=== PATIENT | female | born 2000 | race Caucasian/White ===

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

== ENCOUNTER → 2019-02-15 | Outpatient (CLI) | payer OTHER ==
[~2019-02-15] MED LIST changes: +IBUP600T42 PO; -IBUP60TA PO
[2019-02-15 11:51] LABS: HEMATOCRIT 34.8 % (36.0-47.0); HEMOGLOBIN 11.6 g/dl (12.0-15.5); MEAN CORPUSCULAR HEMOGLOBIN 31.8 pg (27.0-33.0); MEAN CORPUSCULAR HGB CONC 33.3 g/dl (32.0-36.5); MEAN CORPUSCULAR VOLUME 95.3 fl (80.0-96.0); PLATELET COUNT, AUTOMATED 273 10^3/uL (150-450); RED BLOOD COUNT 3.65 10^6/uL (4.00-5.40)
== END ==
LOC: M LAB 10:24
PROVIDERS: ATTEND Obstetrics & Gynecology
DX: Z34.82 Encounter for supervision of other normal pregnancy, second trimester (principal); Z3A.00 Weeks of gestation of pregnancy not specified

== ENCOUNTER → 2019-02-20 | Outpatient (CLI) | payer OTHER | LOC: M LAB 07:09 | PROVIDERS: ATTEND Obstetrics & Gynecology | DX: R73.02 Impaired glucose tolerance (oral) (principal) ==

== ENCOUNTER 2019-03-15 23:41 | Outpatient (CLI) | payer OTHER ==
[~2019-03-15] VITALS: Ht 160 cm; Wt 90.6 kg
[~2019-03-15 23:41] MED LIST changes: +NITROFURANTOIN (MACROBID) 100 MG CAP PO SCH
[2019-03-16 00:46] VITALS: BP 129/83
[2019-03-16] MEDS ORDERED: ACETAMINOPHEN 500 MG TAB PO ONE (02:15)
[2019-03-16] MEDS ORDERED: NITR100C2 PO (02:20)
[2019-03-16 02:24] VITALS: BP 123/83
== END 2019-03-16 02:25 | disposition home or self-care (01) ==
LOC: M LDO 23:41
PROVIDERS: ATTEND Obstetrics & Gynecology
DX: O26.893 Other specified pregnancy related conditions, third trimester (principal); M54.5 Low back pain; O23.43 Unspecified infection of urinary tract in pregnancy, third trimester; Z3A.29 29 weeks gestation of pregnancy

== ENCOUNTER → 2019-05-03 | Outpatient (REF) | payer OTHER ==
[~2019-05-03] MED LIST changes: +IBUP80TA PO; +NITR100C2 PO; -NITROFURANTOIN (MACROBID) 100 MG CAP PO SCH; +PERCOCET PO
== END ==
LOC: M LAB REF 12:35
PROVIDERS: ATTEND Nurse Practitioner Women's Health
DX: Z34.03 Encounter for supervision of normal first pregnancy, third trimester (principal)

== ENCOUNTER 2019-05-11 12:08 | Inpatient (IN) | payer OTHER ==
[2019-05-11] VITALS (10 sets, daily range): BP systolic 113–156; BP diastolic 56–95
[~2019-05-11] VITALS: Ht 165.1 cm; Wt 101.5 kg
[~2019-05-11 12:08] MED LIST changes: -IBUP80TA PO; -PERCOCET PO
[2019-05-11] MEDS ORDERED: LR 1,000 ML IV SCH ×2 (12:45→15:45)
[2019-05-11] MEDS ORDERED: LACTATED RINGER'S 1000 ML IV ONE (13:00)
[2019-05-11 13:16] LABS: HEMATOCRIT 36.3 % (36.0-47.0); HEMOGLOBIN 12.4 g/dl (12.0-15.5); MEAN CORPUSCULAR HGB CONC 34.2 g/dl (32.0-36.5); MEAN CORPUSCULAR VOLUME 93.6 fl (80.0-96.0); PLATELET COUNT, AUTOMATED 262 10^3/uL (150-450); RED BLOOD COUNT 3.88 10^6/uL (4.00-5.40); WHITE BLOOD COUNT 7.7 10^3/uL (4.0-10.0)
[2019-05-11 13:46] LABS: ALT/SGPT 7 U/L (12-78); BILIRUBIN,TOTAL 0.2 MG/DL (0.2-1.0); CREATININE FOR GFR 0.42 MG/DL (0.55-1.30); LDH LACTATE DEHYDROGENASE 192 U/L (84-246); URIC ACID 3.7 MG/DL (2.6-6.0)
[2019-05-11] MEDS ORDERED: BICITRA 30ML SOLN UDC As Ordered ONE (14:10)
[2019-05-11] MEDS ORDERED: ceFAZolin 2 GM/D5W 50 ML IV BAG (J0690 PER 500MG) As Ordered ONE (14:10)
[2019-05-11] MEDS ORDERED: BICITRA 30ML SOLN UDC PO ONE (14:15)
[2019-05-11] MEDS ORDERED: MORPHINE PRES-FREE INJ 10 MG/10 ML VIAL (J2274) As Ordered ONE (14:19)
[2019-05-11] MEDS ORDERED: ONDANSETRON 4MG/2ML VIAL (J2405) IV PRN ×2 (14:40→15:45)
[2019-05-11] MEDS ORDERED: NALOXONE INJ 0.4 MG/1 ML VIAL (J2310) IV PRN ×2 (14:40)
[2019-05-11] MEDS ORDERED: diphenhydrAMINE INJ 50MG/ML VIAL (J1200) IV PRN (14:40)
[2019-05-11] MEDS ORDERED: NALBUPHINE HCL 10 MG/ML AMP (J2300) IV PRN (14:40)
[2019-05-11] MEDS ORDERED: OXYTOCIN INJ 10 UNITS/ML VIAL (J2590) As Ordered ONE (15:04)
[2019-05-11] MEDS ORDERED: ONDANSETRON 4MG/2ML VIAL (J2405) As Ordered ONE (15:04)
[2019-05-11 15:07] LABS: CORD GAS ABE V -2.1; CORD GAS HCO3 V 23.4 MEQ/L; CORD GAS O2 SAT V 74.8 %; CORD GAS PCO2 V 42.8 mmHg; CORD GAS PH V 7.356 UNITS; CORD GAS PO2 V 31.2 mmHg; CORD GAS SBC V 22.1 MEQ/L; CORD GAS TCO2 V 24.7 MEQ/L
[2019-05-11 15:11] LABS: CORD GAS ABE A -4.2; CORD GAS HCO3 A 23.3 MEQ/L; CORD GAS PCO2 A 50.9 mmHg; CORD GAS PO2 A 23.3 mmHg; CORD GAS SBC A 19.9 MEQ/L; CORD GAS TCO2 A 24.8 MEQ/L
[2019-05-11 15:12] LABS: CORD GAS PH A 7.278 UNITS
[2019-05-11] MEDS ORDERED: PHYTONADIONE 1 MG/0.5 ML SYRINGE (J3430) IM ONE (15:15)
[2019-05-11] MEDS ORDERED: IBUP80TA PO (15:44)
[2019-05-11] MEDS ORDERED: PERCOCET PO (15:44)
[2019-05-11] MEDS ORDERED: oxyCODONE 5MG TAB PO PRN (15:45)
[2019-05-11] MEDS ORDERED: MOM 30ML SUSPENSION UDC PO PRN (15:45)
[2019-05-11] MEDS ORDERED: OXYTOCIN DRIP 30 UNITS in APPROPRIATE DILUENT 1 EA IV SCH (15:45)
[2019-05-11] MEDS ORDERED: RHOGAM 300 MCG (1500 IU) INJ (J2790) IM SCH (15:45)
[2019-05-11] MEDS ORDERED: PERCOCET 5MG/325MG TAB PO PRN ×2 (15:45)
[2019-05-11] MEDS ORDERED: METOCLOPRAMIDE INJ 10MG/2ML VIAL (J2765) IV PRN (15:45)
[2019-05-11] MEDS ORDERED: fentaNYL 100 MCG/2 ML INJECTION (J3010) IV PRN (15:45)
[2019-05-11] MEDS ORDERED: KETOROLAC 30 MG/ML VIAL (J1885) IV PRN (15:45)
[2019-05-11] MEDS ORDERED: MEPERIDINE INJ 25 MG/ML VIAL (J2175) IV PRN (15:45)
[2019-05-11] MEDS ORDERED: MEASLES,MUMPS,RUBELLA VACCINE INJ (MMR-II) (90707) SC SCH (15:45)
[2019-05-11] MEDS ORDERED: ERYTHROMYCIN OPHTH OINT OU ONE (16:00)
[2019-05-11] MEDS ORDERED: ACETAMINOPHEN TAB 650MG DOSE (2X325MG) PO PRN (16:00)
[2019-05-11] MEDS ORDERED: HEPATITIS B VAC *BIRTH DOSE ONLY*(ENGERIX) 10 MCG/0.5 ML SYRINGE IM ONE (16:00)
[2019-05-11] MEDS ORDERED: OXYTOCIN 30 UNITS IN 0.9% NaCl 500ML IV BAG (J2590) As Ordered ONE (16:46)
[2019-05-11] MEDS ORDERED: KETOROLAC 30 MG/ML VIAL (J1885) As Ordered ONE (17:02)
--- NOTE | 2019-05-11 17:58 | HPE ---
DATE OF ADMISSION: 05/11/2019 Fara is a 18-year-old female 2, para 1-0-0-1, who was admitted with an estimated date of confinement (EDC) of 05/27/2019, estimated gestational age (EGA) 37-5/7 weeks gestation who is being admitted after presenting to the office with complaint of decreased movement. She had a nonreactive non-stress test (NST) followed by a 4/8 biophysical profile, -2 for tone, -2 for movement. She was also found to be polyhydramnios in a breech position. After counseling, a decision was made to bring the patient to the hospital for delivery. Her records reviewed, which were essentially unremarkable. She initiated care at approximately 7 weeks gestation. LABORATORY: Blood type is O positive, rubella immune, hepatitis negative, HIV negative, GC and chlamydia negative. One-hour sugar testing was within normal limits. Her GBS was negative. PAST MEDICAL HISTORY: Denies. PAST SURGICAL HISTORY: Denies. SOCIAL HISTORY: Denies any alcohol, drugs, or cigarette smoking. She is . FAMILY HISTORY: Significant for diabetes and congestive heart failure. PHYSICAL EXAMINATION: Obese female in no acute distress. Abdomen: Soft, nontender, nondistended. Extremities: No clubbing, cyanosis, or edema. Vaginal exam: Closed, thick, and posterior with no presenting part palpated. Tracing reviewed. heart rate 140s. No evidence of decelerations. ASSESSMENT: 1. Intrauterine at 37-5/7 weeks gestation. 2. Decreased movement with a 4/8 biophysical profile, -2 for tone and -2 for movement. 3. Polyhydramnios. Amniotic fluid 29 cm. 4. Breech presentation. PLAN: Admit to labor and delivery. Routine labs sent. We had an extensive discussion on risks and benefits of delivery. A decision was made to proceed with delivery via section. Anesthesia and labor and delivery (L and D) staff notified. Awaiting operating room (OR) for primary low transverse section.
[2019-05-11] MEDS: METOCLOPRAMIDE INJ 10MG/2ML VIAL (J2765) IV PRN (18:27)
[2019-05-11] MEDS ORDERED: diphenhydrAMINE 25 MG CAP PO PRN (22:30)
--- NOTE | 2019-05-11 22:34 | RO ---
DATE OF PROCEDURE: 05/11/2019 Fara is a 18-year-old female 2, para 1-0-0-1 who is admitted at 37-5/7 weeks gestation after presenting with decreased movement and was found to have a 4/8 biophysical profile, -2 for tone, -2 for movement. She also was found to be polyhydramnios with an CELESTINA of 29. After extensive counseling, a decision was made to proceed with a primary section. PREOPERATIVE DIAGNOSES: 1. Intrauterine at 37-5/7 weeks gestation. 2. 4/8 biophysical profile with decreased movement. 3. Breech presentation. 4. Polyhydramnios. POSTOPERATIVE DIAGNOSES: 1. Intrauterine at 37-5/7 weeks gestation. 2. 4/8 biophysical profile with decreased movement. 3. Breech presentation. 4. Polyhydramnios. 5. Nuchal cord times one and cord wrapped around the body. PROCEDURE: Primary low transverse section. SURGEON: Dr. Kevin Law VISUAL MERCHANDISE MANAGER: Dr. Rodriguez - resident ANESTHESIA: Spinal. ESTIMATED BLOOD LOSS: 600 mL. FINDINGS: Live male infant in occiput transverse position with nuchal cord times one and cord wrapped around the body times one. score 8 and 9. weight 8 pounds. Normal appearing tubes and ovaries. Normal appearing placenta. DESCRIPTION OF PROCEDURE: After obtaining informed consent, the patient was taken to the operating room where spinal anesthetic was found to be adequate. She was then draped and prepped in the usual sterile fashion in the supine position. At this point, an elliptical incision was made with the first knife. This was carried down to the fascia. Fascia was incised in a midline fashion and carried through laterally. The superior aspect of the fascia was then grasped with Love clamps, tented off and dissected off the rectus muscles sharply. The inferior aspect of the fascia was dissected off in a similar fashion. Rectus muscles in midline fashion. Peritoneum identified. Peritoneal cavity entered bluntly. Superior and inferior dissection of the peritoneum was then done with good position of the bladder. At this point, a Mobius skin retractor was placed, a low transverse uterine incision was made. was delivered in atraumatic fashion. Nose and mouth bulb suctioned. Cord doubly clamped and cut and infant was handed over to the awaiting warmer. Cord blood and cord gas were sent. Placenta removed manually. Uterus cleared of all clot and debris, and the uterine incision was then repaired in two separate layers of #0 Vicryl sutures. All superficial bleeders were coagulated. Fascia closed in two separate segments of #0 Vicryl suture, and the skin was closed in a subcuticular fashion using #3-0 Vicryl on a Chavez. Steri-Strips placed. The patient tolerated the procedure well and was transferred to recovery room in stable condition.
[2019-05-11] MEDS: IBUPROFEN 800 MG TAB PO SCH (23:47)
[2019-05-12 02:00] VITALS: BP 128/86
[2019-05-12] MEDS: METOCLOPRAMIDE INJ 10MG/2ML VIAL (J2765) IV PRN (03:28)
[2019-05-12 06:00] VITALS: BP 109/56
[2019-05-12 06:48] LABS: HEMATOCRIT 32.9 % (36.0-47.0); HEMOGLOBIN 10.8 g/dl (12.0-15.5); MEAN CORPUSCULAR HEMOGLOBIN 30.9 pg (27.0-33.0); MEAN CORPUSCULAR HGB CONC 32.8 g/dl (32.0-36.5); PLATELET COUNT, AUTOMATED 215 10^3/uL (150-450); WHITE BLOOD COUNT 10.3 10^3/uL (4.0-10.0)
[2019-05-12] MEDS: PRENATAL VITAMINS CHEWABLE TABLET PO SCH (07:57)
[2019-05-12] MEDS: IBUPROFEN 800 MG TAB PO SCH ×3 (07:58→23:44)
--- NOTE | 2019-05-12 08:55 | IPNPDOC ---
Text Note Date of Service The patient was seen on 05/12/19. NOTE Postop Day 1 s/p primary LTCS; secondary to low BPP/transverse lie S: Pain well controlled, lochia and bleeding decreasing, voiding spontaneously, ambulating without assistance. . O: vitals stable Heart: RRR, no murmurs/gallops/rubs Lungs: CTA BL Abd: Fundus at U-1 and firm; dressing dry and intact; some pannus edema Ext: no lower extremity edema, nontender, Bess's negative bilaterally A/P: 18 yo G2 now P2. Postop day 1 s/p primary LTCS. Hemodynamically stable, afebrile, good pain control. Recovering well. -Routine care and advancement -Anticipate discharge tomorrow VS,Aristeo, I+O VS, Aristeo, I+O Laboratory Tests 05/11/19 12:52 Red Blood Count 3.88 L, Mean Corpuscular Volume 93.6, Mean Corpuscular Hemoglobin 32.0, Mean Corpuscular Hemoglobin Concent 34.2, Red Cell Distribution Width 12.3 05/11/19 12:53 Aspartate Amino Transf (AST/SGOT) 17, Alanine Aminotransferase (ALT/SGPT) 7 L, Lactate Dehydrogenase 192, Total Bilirubin 0.2, Uric Acid 3.7 05/12/19 06:16 Red Blood Count 3.50 L, Mean Corpuscular Volume 94.0, Mean Corpuscular Hemoglobi n 30.9, Mean Corpuscular Hemoglobin Concent 32.8, Red Cell Distribution Width 12.4 Vital Signs Date Time Temp Pulse Resp B/P (MAP) Pulse Ox O2 Delivery O2 Flow Rate FiO2 05/12/19 06:00 97.4 75 16 109/56 (73) 98 I&O- Last 24 Hours up to 6 AM 05/12/19 05:59 Intake Total 600 ml Output Total 1575 ml Balance -975 ml GME ATTESTATION GME ATTESTATION My faculty preceptor for this patient encounter was physically present during the encounter and was fully available. All aspects of the patient interview, examination, medical decision making process, and medical care plan development were reviewed and approved by the faculty preceptor. The faculty preceptor is aware and concurs with the plan as stated in the body of this note and will attest to such by his/her cosignature. NICK LOMAX DO May 12, 2019 08:55
[2019-05-12 10:00] VITALS: BP 136/83
[2019-05-12 14:00] VITALS: BP 136/94
[2019-05-12 18:00] VITALS: BP 128/81
[2019-05-12 22:47] VITALS: BP 132/77
[2019-05-13 02:20] VITALS: BP 131/79
[2019-05-13 05:41] VITALS: BP 129/70
[2019-05-13] MEDS: PRENATAL VITAMINS CHEWABLE TABLET PO SCH (09:26)
[2019-05-13] MEDS: IBUPROFEN 800 MG TAB PO SCH (09:26)
--- NOTE | 2019-05-13 14:53 | DSES ---
DATE OF ADMISSION: 05/11/2019 DATE OF DISCHARGE: 05/13/2019 HISTORY: 18-year-old G2, P1, female at 37-5/7s weeks gestation presents with decreased movement. She had non-reassuring testing which included a biophysical profile of 8/8 and nonreactive NST test. The patient was noted to have polyhydramnios and also to be in the breech position. The decision was made to proceed with delivery via section. On 05/11/2019, the patient underwent primary section for an 8-pound without complication. Her postoperative course was unremarkable. She had adequate return of bladder and bowel function. Postop hemoglobin was 10.8 gm/dL. She was deemed stable for discharge on postoperative day #2. ADMISSION DIAGNOSIS: 37+ weeks. Breech. Non-reassuring tracing. DISCHARGE DIAGNOSIS: Delivered. PROCEDURE: Primary low transverse section. DISPOSITION: Patient will followup with Dr. Law in 2 weeks. Instructions were reviewed.
== END 2019-05-13 12:05 | disposition home or self-care (01) | DRG 540 ==
LOC: M LDI 12:08 → M OBS 17:47
PROVIDERS: ADMIT Obstetrics & Gynecology; ATTEND Obstetrics & Gynecology
PROC: 10D00Z1 Extraction of Products of Conception, Low, Open Approach (ICD-10-PCS; principal; 2019-05-11 15:18)
DX: O32.1XX0 Maternal care for breech presentation, not applicable or unspecified (principal); Z3A.37 37 weeks gestation of pregnancy; Z37.0 Single live birth; O40.3XX0 Polyhydramnios, third trimester, not applicable or unspecified; O99.214 Obesity complicating childbirth; E66.9 Obesity, unspecified; O69.81X0 Labor and delivery complicated by cord around neck, without compression, not applicable or unspecified; O69.82X0 Labor and delivery complicated by other cord entanglement, without compression, not applicable or unspecified

== ENCOUNTER → 2019-06-15 | Outpatient (REF) | payer OTHER ==
[~2019-06-15] MED LIST changes: +IBUP80TA PO; +PERCOCET PO
== END ==
LOC: M LAB REF 13:34
PROVIDERS: ATTEND Nurse Practitioner Women's Health
DX: T81.40XA Infection following a procedure, unspecified, initial encounter (principal)

== ENCOUNTER → 2020-06-11 | Outpatient (CLI) | payer OTHER | LOC: M LABSMTC 13:31 | PROVIDERS: ATTEND Family Medicine | DX: Z20.828 Contact with and (suspected) exposure to other viral communicable diseases (principal) | CPT/HCPCS: C9803; U0003 ==

== ENCOUNTER → 2020-06-22 | Outpatient (REF) | payer OTHER ==
[2020-06-23 12:00] LABS: CREATININE 24 HOUR, URINE 884.4 MG/24HR (600-1800); CREATININE, URINE 73.7 MG/DL; TOTAL PROTEIN 24 HOUR URINE 169.2 MG/24HR (50-150); URINE TOTAL PROTEIN 14.1 MG/DL (0-12)
== END ==
LOC: M LAB REF 10:56
PROVIDERS: ATTEND Obstetrics & Gynecology
DX: Z34.81 Encounter for supervision of other normal pregnancy, first trimester (principal)

== ENCOUNTER → 2020-06-23 | Outpatient (CLI) | payer OTHER ==
[2020-06-23 11:22] LABS: ALT/SGPT 11 U/L (12-78); BILIRUBIN,TOTAL 0.2 MG/DL (0.2-1.0); BLOOD UREA NITROGEN 4 MG/DL (7-18); CALCIUM LEVEL 9.1 MG/DL (8.5-10.1); CARBON DIOXIDE LEVEL 20 MEQ/L (21-32); CHLORIDE LEVEL 108 MEQ/L (98-107); CREATININE FOR GFR 0.38 MG/DL (0.55-1.30); POTASSIUM SERUM 4.3 MEQ/L (3.5-5.1); SODIUM LEVEL 138 MEQ/L (136-145); TOTAL PROTEIN 6.9 GM/DL (6.4-8.2)
[2020-06-24 14:38] LABS: GLUCOSE, FASTING 99 MG/DL (70-100)
== END ==
LOC: M LAB 09:55
PROVIDERS: ATTEND Obstetrics & Gynecology
DX: Z34.81 Encounter for supervision of other normal pregnancy, first trimester (principal); Z3A.00 Weeks of gestation of pregnancy not specified

== ENCOUNTER → 2020-09-17 | Outpatient (CLI) | payer OTHER ==
[2020-09-17 11:33] LABS: HEMATOCRIT 37.4 % (36.0-47.0); HEMOGLOBIN 11.9 g/dl (12.0-15.5); MEAN CORPUSCULAR HEMOGLOBIN 31.2 pg (27.0-33.0); MEAN CORPUSCULAR HGB CONC 31.8 g/dl (32.0-36.5); MEAN CORPUSCULAR VOLUME 97.9 fl (80.0-96.0); PLATELET COUNT, AUTOMATED 256 10^3/uL (150-450); RED BLOOD COUNT 3.82 10^6/uL (4.00-5.40); WHITE BLOOD COUNT 9.1 10^3/uL (4.0-10.0)
== END ==
LOC: M LAB 09:55
PROVIDERS: ATTEND Obstetrics & Gynecology
DX: Z34.82 Encounter for supervision of other normal pregnancy, second trimester (principal); Z3A.00 Weeks of gestation of pregnancy not specified

== ENCOUNTER → 2020-10-07 | Outpatient (CLI) | payer OTHER | LOC: M LAB 08:16 | PROVIDERS: ATTEND Advanced Practice Midwife | DX: O26.893 Other specified pregnancy related conditions, third trimester (principal); Z3A.00 Weeks of gestation of pregnancy not specified ==

== ENCOUNTER → 2020-11-13 | Outpatient (REF) | payer OTHER | LOC: M LAB REF 16:08 | PROVIDERS: ATTEND Obstetrics & Gynecology | DX: Z34.83 Encounter for supervision of other normal pregnancy, third trimester (principal); Z36.85 Encounter for antenatal screening for Streptococcus B ==

== ENCOUNTER 2020-11-21 20:07 | Outpatient (CLI) | payer OTHER ==
[~2020-11-21] VITALS: Ht 160 cm; Wt 105.6 kg
[2020-11-21 20:44] VITALS: BP 133/93
[2020-11-21 21:19] VITALS: BP 135/96
[2020-11-21 21:22] VITALS: BP 135/96
== END 2020-11-21 20:55 | disposition home or self-care (01) ==
LOC: M LDO 20:07
PROVIDERS: ATTEND Obstetrics & Gynecology
DX: O26.893 Other specified pregnancy related conditions, third trimester (principal); O10.012 Pre-existing essential hypertension complicating pregnancy, second trimester; Z3A.36 36 weeks gestation of pregnancy

== ENCOUNTER 2020-11-26 15:58 | Emergency (ER) | payer OTHER ==
[~2020-11-26] VITALS: Ht 162.6 cm; Wt 107.7 kg
[2020-11-26 17:35] LABS: BASO % 0.3 % (0.0-1.0); EOS # 0.2 10^3/uL (0.0-0.5); EOS % 2.1 % (0.0-3.0); HEMATOCRIT 37.4 % (36.0-47.0); HEMOGLOBIN 12.1 g/dl (12.0-15.5); LYMPH # 2.1 10^3/uL (1.5-5.0); LYMPH % 22.3 % (24.0-44.0); MEAN CORPUSCULAR HGB CONC 32.4 g/dl (32.0-36.5); MEAN CORPUSCULAR VOLUME 92.6 fl (80.0-96.0); MONO # 0.9 10^3/uL (0.0-0.8); MONO % 9.5 % (2.0-8.0); NEUTROPHILS # 6.2 10^3/uL (1.5-8.5); NEUTROPHILS % 65.3 % (36.0-66.0); PLATELET COUNT, AUTOMATED 300 10^3/uL (150-450); RED BLOOD COUNT 4.04 10^6/uL (4.00-5.40); WHITE BLOOD COUNT 9.5 10^3/uL (4.0-10.0)
[2020-11-26 17:52] LABS: APPEARANCE, URINE HAZY (CLEAR); BACTERIA, URINE AUTO 2+ (NEGATIVE); BILIRUBIN, URINE AUTO NEGATIVE (NEGATIVE); BLOOD, URINE BLOOD NEGATIVE (NEGATIVE); COLOR, URINE YELLOW (YELLOW); GLUCOSE, URINE (UA) AUTO NEGATIVE (NEGATIVE); KETONE, URINE AUTO TRACE mg/dL (NEGATIVE); LEUKOCYTE ESTERASE, URINE AUTO TRACE (NEGATIVE); MUCUS, URINE SMALL (NEGATIVE); NITRITE, URINE AUTO NEGATIVE (NEGATIVE); PROTEIN, URINE AUTO NEGATIVE (NEGATIVE); RBC, URINE AUTO 1 /HPF (0-3); SPECIFIC GRAVITY URINE AUTO 1.016 (1.002-1.035); SQUAMOUS EPITHELIAL CELL UR AU 4 /HPF (0-6); UROBILINOGEN, URINE AUTO 0.2 mg/dL (0.0-2.0); WBC, URINE AUTO 6 /HPF (0-3)
[2020-11-26 18:02] LABS: ALT/SGPT 10 U/L (12-78); BLOOD UREA NITROGEN 5 MG/DL (7-18); CALCIUM LEVEL 9.2 MG/DL (8.5-10.1); CARBON DIOXIDE LEVEL 23 MEQ/L (21-32); CHLORIDE LEVEL 110 MEQ/L (98-107); CREATININE FOR GFR 0.32 MG/DL (0.55-1.30); GLOMERULAR FILTRATION RATE > 60.0 (>60); GLUCOSE, FASTING 78 MG/DL (70-100); POTASSIUM SERUM 4.3 MEQ/L (3.5-5.1); SODIUM LEVEL 140 MEQ/L (136-145)
[2020-11-26 18:03] LABS: ALBUMIN 2.9 GM/DL (3.2-5.2); BILIRUBIN,DIRECT 0.1 MG/DL (0.0-0.2); BILIRUBIN,TOTAL 0.2 MG/DL (0.2-1.0); TOTAL PROTEIN 6.6 GM/DL (6.4-8.2)
[2020-11-26] MEDS ORDERED: GLYB5TAB6 PO (18:34)
--- NOTE | 2020-11-26 20:43 | REPVR ---
PROCEDURE INFORMATION: Exam: US Abdomen, Limited; Right Upper Quadrant Exam date and time: 11/26/2020 7:51 PM Age: 20 years old Clinical indication: Abdominal pain; Acute; Additional info: Ruq pain TECHNIQUE: Imaging protocol: US abdomen. Real time ultrasound with image documentation. Limited exam focused on the right upper quadrant. COMPARISON: CT ABD PELVIS W/O CONTRAST 02/23/2018 12:19 AM FINDINGS: Liver: Normal. No masses. Gallbladder: Normal. No gallstones. There is no gallbladder wall thickening. Common bile duct: The common bile duct measures 5.9 mm. No mass or choledocholithiasis. Pancreas: Visualized pancreas is unremarkable. Right kidney: Right kidney measures 12.4 x 6.5 x 5.5 cm. Uterus: Note is made of a gravid uterus. IMPRESSION: Unremarkable scan of the right upper quadrant. Electronically signed by: Chuck Pineda On 11/26/2020 20:43:57 PM
[2020-11-26 20:56] VITALS: BP 132/82
--- NOTE | 2020-11-27 11:28 | ECGEPIP ---
[facility] - ED Test Date: 2020-11-26 Pat Name: BRIANNE MUÑOZ Department: Room: - Gender: Female [employer] Corporal: Zack MUKHERJEE : 2000 Requested By: Era Scanlon Order Number: [id number] Reading MD: Bon Simental Measurements Intervals [place] Rate: 97 P: 31 MS: 148 QRS: -4 QRSD: 76 T: 16 QT: 346 QTc: 439 Interpretive Statements Normal sinus rhythm Minimal voltage criteria for LVH, may be normal variant POOR R WAVE PROGRESSION NONSPECIFIC T WAVE ABNORMALITY(S) NO PRIORS FOR COMPARISON Electronically Signed on 11-27-2020 11:28:32 EDT by Bon Simental
== END 2020-11-26 20:58 | disposition admitted as inpatient to this hospital (09) ==
LOC: M ED 15:58
DX: O60.03 Preterm labor without delivery, third trimester (principal); O26.893 Other specified pregnancy related conditions, third trimester; R10.13 Epigastric pain; Z3A.00 Weeks of gestation of pregnancy not specified

== ENCOUNTER 2020-11-26 20:59 | Outpatient (CLI) | payer OTHER ==
[~2020-11-26] VITALS: Ht 162.6 cm; Wt 104.0 kg
[~2020-11-26 20:59] MED LIST changes: +GLYB5TAB6 PO
[2020-11-26 23:03] LABS: TOTAL PROTEIN,RANDOM URINE 19.1 MG/DL (0.0-12.0)
== END 2020-11-26 23:30 | disposition home or self-care (01) ==
LOC: M LDO 20:59
PROVIDERS: ATTEND Advanced Practice Midwife
DX: O26.893 Other specified pregnancy related conditions, third trimester (principal); Z3A.37 37 weeks gestation of pregnancy

== ENCOUNTER → 2020-12-05 | Outpatient (CLI) | payer OTHER | LOC: M LABSMTC 10:41 | PROVIDERS: ATTEND Anesthesiology | DX: Z01.812 Encounter for preprocedural laboratory examination (principal); Z20.822 Contact with and (suspected) exposure to COVID-19 ==

== ENCOUNTER → 2020-12-05 | Outpatient (CLI) | payer OTHER ==
[~2020-12-05] MED LIST changes: +PRENTAB9 PO
--- NOTE | 2020-12-05 16:13 | REP ---
INDICATION: CELESTINA,EFW. COMPARISON: 11/14/2020. TECHNIQUE: Multiple sonographic images of the gravid uterus. FINDINGS: E there is a single intrauterine gestation in a cephalic presentation. The placenta is anterior with grade 2 maturity. There is no previa. The umbilical cord inserts centrally on to the placenta. There is a three-vessel cord. The cervix measures 3.1 cm. heart rate is 150 beats per minute. Amniotic fluid index is 11.8 (7.2-22.4). The composite ultrasound just let age today is 38 weeks 1 day with an RICK of 12/18/2020. The LMP is unknown. Estimated weight is 4298 g/9 lb, 7 oz. This is greater than the 97th percentile for 39 weeks 1 day. Umbilical artery Doppler: Umbilical artery 1: PSV 50.2 centimeters/second EDV 24.3 centimeters/second S/D 2.07 (1.50-3.28) RA 0.52 (0.41-0.69). Umbilical artery 2: PSV 35.5 centimeters/second EDV 70.8 centimeters/second S/D 2.00 RI 0.50 IMPRESSION: Amniotic fluid an estimated weight as above. <Electronically signed by Chip Dyer > 12/05/20 1614
== END ==
LOC: M WHC 10:07
PROVIDERS: ATTEND Obstetrics & Gynecology
DX: O24.415 Gestational diabetes mellitus in pregnancy, controlled by oral hypoglycemic drugs (principal); Z3A.38 38 weeks gestation of pregnancy

== ENCOUNTER 2020-12-10 05:11 | Inpatient (IN) | payer OTHER ==
[~2020-12-10] VITALS: Ht 160 cm; Wt 107.2 kg
[~2020-12-10 05:11] MED LIST changes: -PRENTAB9 PO
[2020-12-10] MEDS ORDERED: LR 1,000 ML IV SCH ×2 (05:17→10:00)
[2020-12-10] MEDS ORDERED: LACTATED RINGER'S 1000 ML IV STA (05:17)
[2020-12-10] MEDS ORDERED: ceFAZolin SOD 2 GM in IV 1 EA IV ONE (05:20)
[2020-12-10] MEDS ORDERED: BICITRA 30ML SOLN UDC PO ONE (05:20)
[2020-12-10] MEDS ORDERED: PRENTAB9 PO (05:27)
[2020-12-10 06:01] LABS: HEMATOCRIT 37.9 % (36.0-47.0); HEMOGLOBIN 12.1 g/dl (12.0-15.5); MEAN CORPUSCULAR HEMOGLOBIN 29.4 pg (27.0-33.0); MEAN CORPUSCULAR HGB CONC 31.9 g/dl (32.0-36.5); MEAN CORPUSCULAR VOLUME 92.2 fl (80.0-96.0); PLATELET COUNT, AUTOMATED 321 10^3/uL (150-450); RED BLOOD COUNT 4.11 10^6/uL (4.00-5.40); WHITE BLOOD COUNT 9.1 10^3/uL (4.0-10.0)
[2020-12-10] MEDS ORDERED: MORPHINE PRES-FREE INJ 10 MG/10 ML VIAL (J2274) As Ordered ONE ×2 (06:59→07:57)
[2020-12-10] MEDS ORDERED: OXYTOCIN INJ 10 UNITS/ML VIAL (J2590) As Ordered ONE ×3 (06:59→08:42)
[2020-12-10] MEDS ORDERED: dexameTHASONE 4 MG/ML 1ML VIAL (J1100 PER 1MG) As Ordered ONE (06:59)
[2020-12-10] MEDS ORDERED: ONDANSETRON 4MG/2ML VIAL As Ordered ONE (06:59)
[2020-12-10] MEDS ORDERED: KETOROLAC 60MG 2ML VIAL As Ordered ONE (06:59)
[2020-12-10] MEDS ORDERED: ONDANSETRON 4MG/2ML VIAL IV PRN ×2 (07:48→10:00)
[2020-12-10] MEDS ORDERED: diphenhydrAMINE 50MG/ML VIAL (J1200) IV PRN (07:48)
[2020-12-10] MEDS ORDERED: NALOXONE INJ 0.4MG/1ML VIAL (J2310 PER 1MG) IV PRN ×2 (07:48)
[2020-12-10] MEDS ORDERED: NALBUPHINE HCL 10 MG/ML AMP (J2300) IV PRN (07:48)
[2020-12-10] MEDS ORDERED: ePHEDrine SULFATE 25 MG/5 ML(5MG/ML) SYRINGE As Ordered ONE (07:56)
[2020-12-10] MEDS ORDERED: METOCLOPRAMIDE INJ 10MG/2ML VIAL (J2765 PER 1) As Ordered ONE (08:07)
[2020-12-10] MEDS ORDERED: PHENYLephrine 500MCG 5ML (100MCG/ML) SYRINGE As Ordered ONE (08:10)
[2020-12-10] MEDS ORDERED: propofoL 200 MG/20 ML VIAL As Ordered ONE (08:18)
[2020-12-10 08:22] LABS: CORD GAS ABE A -1.5; CORD GAS HCO3 A 26.9 MEQ/L; CORD GAS O2 SAT A 46.2 %; CORD GAS PCO2 A 60.3 mmHg; CORD GAS PH A 7.268 UNITS; CORD GAS PO2 A 22.2 mmHg; CORD GAS SBC A 21.9 MEQ/L; CORD GAS TCO2 A 28.8 MEQ/L
[2020-12-10 08:24] LABS: CORD GAS ABE V -2.9; CORD GAS HCO3 V 22.9 MEQ/L; CORD GAS O2 SAT V 85.2 %; CORD GAS PCO2 V 43.5 mmHg; CORD GAS PH V 7.339 UNITS; CORD GAS PO2 V 42.1 mmHg; CORD GAS SBC V 21.7 MEQ/L; CORD GAS TCO2 V 24.2 MEQ/L
[2020-12-10] MEDS ORDERED: SIMETHICONE 80MG CHEW TAB PO PRN (09:55)
[2020-12-10] MEDS ORDERED: RHOGAM 300 MCG (1500 IU) INJ (J2790) IM SCH (09:55)
[2020-12-10] MEDS ORDERED: MOM 30ML SUSPENSION UDC PO PRN (09:55)
[2020-12-10] MEDS ORDERED: MEASLES,MUMPS,RUBELLA VACCINE INJ (MMR-II) (90707) SC SCH (09:55)
[2020-12-10] MEDS ORDERED: OXYTOCIN DRIP 30 UNITS in IV 1 EA IV SCH (09:55)
[2020-12-10] MEDS ORDERED: PERCOCET 5MG/325MG TAB PO PRN (10:00)
[2020-12-10] MEDS ORDERED: fentaNYL 100 MCG/2 ML INJECTION (J3010) IV PRN (10:00)
[2020-12-10] MEDS ORDERED: METOCLOPRAMIDE INJ 10MG/2ML VIAL (J2765 PER 1) IV PRN (10:00)
[2020-12-10] MEDS ORDERED: OXYTOCIN 30 UNITS IN 0.9% NaCl 500ML IV BAG (J2590) As Ordered ONE (10:08)
[2020-12-10 10:45] VITALS: BP 116/63
[2020-12-10] MEDS: PRENATAL VITAMINS CHEWABLE TABLET PO SCH (11:07)
[2020-12-10 11:15] VITALS: BP 126/71
[2020-12-10 12:15] VITALS: BP 108/63
[2020-12-10 13:15] VITALS: BP 128/74
[2020-12-10] MEDS: METOCLOPRAMIDE INJ 10MG/2ML VIAL (J2765 PER 1) IV PRN ×2 (14:24→20:37)
[2020-12-10] MEDS: KETOROLAC 30 MG/ML 1ML VIAL IV SCH ×2 (15:18→20:37)
[2020-12-10 18:02] VITALS: BP 118/73
[2020-12-10] MEDS: DOCUSATE SODIUM 100MG CAPSULE PO SCH (20:37)
[2020-12-10] MEDS ORDERED: PROMETHAZINE INJ 25 MG/ML VIAL (J2550) IV ONE (21:30)
[2020-12-10 22:00] VITALS: BP 129/77
[2020-12-11 02:00] VITALS: BP 120/72
[2020-12-11] MEDS: KETOROLAC 30 MG/ML 1ML VIAL IV SCH (02:31)
[2020-12-11] MEDS: PERCOCET 5MG/325MG TAB PO PRN ×5 (05:31→21:52)
[2020-12-11 06:15] VITALS: BP 125/75
[2020-12-11 08:08] LABS: HEMATOCRIT 30.8 % (36.0-47.0); HEMOGLOBIN 9.7 g/dl (12.0-15.5); MEAN CORPUSCULAR HEMOGLOBIN 29.7 pg (27.0-33.0); MEAN CORPUSCULAR HGB CONC 31.5 g/dl (32.0-36.5); MEAN CORPUSCULAR VOLUME 94.2 fl (80.0-96.0); PLATELET COUNT, AUTOMATED 255 10^3/uL (150-450); RED BLOOD COUNT 3.27 10^6/uL (4.00-5.40); WHITE BLOOD COUNT 9.6 10^3/uL (4.0-10.0)
[2020-12-11] MEDS: PRENATAL VITAMINS CHEWABLE TABLET PO SCH (09:30)
[2020-12-11] MEDS: DOCUSATE SODIUM 100MG CAPSULE PO SCH ×2 (09:30→20:41)
[2020-12-11] MEDS: IBUPROFEN 800 MG TAB PO SCH ×2 (11:20→18:33)
[2020-12-11 13:48] VITALS: BP 129/72
[2020-12-11 18:00] VITALS: BP 126/72
[2020-12-11 22:00] VITALS: BP 118/61
[2020-12-12] MEDS: PERCOCET 5MG/325MG TAB PO PRN ×2 (01:26→08:06)
[2020-12-12 02:00] VITALS: BP 135/80
[2020-12-12] MEDS: IBUPROFEN 800 MG TAB PO SCH ×2 (03:25→10:39)
--- NOTE | 2020-12-12 05:35 | IPNPDOC ---
Progress Note Date of Service: Dec 12, 2020 Day#: 2 Progress Note POD 2 SUBJECT: Fara is a 20yo [id number] s/p uncomplicated RLTCS at term for history of prior , doing well /post-op day 2. She has been ambulating, voiding spontaneously without issue and tolerating regular diet. Breast feeding without issue. Reports lochia is like a normal period. Pain well controlled with motrin/percocet. Feels ready to go home today. OBJECTIVE: VITAL SIGNS: normotensive, afebrile. Alert and oriented times three. Abdomen: Fundus firm at U-2. Soft, appropriately tender to palpation with no rebound/guarding. Pfannenstiel incision clean/dry/intact with steri strips overlying Extremities: no pain with palpation of legs Labs: pre-op H/H: 12.1/37.9 post-op H/H: 9.7/30.8 ASSESSMENT: Fara is a 20yo [id number] s/p uncomplicated RLTCS at term for history of prior , doing well /post-op day 2. Vitals within normal limits, afebrile, hemodynamically stable with no evidence of infection. PLAN: 1. Discharge to home today. 2. Rx Motrin and prn percocet for pain. Colace for bowel regimen. Iron for anemia. 3. Regular diet 4. Routine 2 week incision check with Dr. Law 5. Discussed return precautions for signs of wound infection, fevers/chills, heavy bleeding, anything concerning 6. Vaginal rest and no heavy lifting 6 weeks Gloria Bautista MD VS, I&O, [facility] Vital Signs/I&O Vital Signs Date Time Temp Pulse Resp B/P (MAP) Pulse Ox O2 Delivery O2 Flow Rate FiO2 12/12/20 02:10 16 12/12/20 02:00 98.9 100 135/80 (98) 100 Room Air Laboratory Data 24H LABS Laboratory Tests 2 12/11/20 07:16: Nucleated Red Blood Cells % (auto) 0.0 CBC/BMP Laboratory Tests 12/11/20 07:16 Gloria Bautista MD Dec 12, 2020 05:35
--- NOTE | 2020-12-12 05:37 | DS.PDOC ---
Discharge Summary General Date of Admission Dec 10, 2020 at 05:11 Date of Discharge December 12, 2020 Attending Physician: Kevin Law DO Discharge Summary PROCEDURES PERFORMED DURING STAY: repeat section ADMITTING DIAGNOSES: 1. Term SIUP with history of prior section desiring repeat DISCHARGE DIAGNOSES: 1. Term SIUP with history of prior section desiring repeat COMPLICATIONS/CHIEF COMPLAINT: Term , Previous Section. HISTORY OF PRESENT ILLNESS/HOSPITAL COURSE: Fara is a 20yo [id number] s/p uncomplicated RLTCS at term for history of prior , doing well /post-op day 2. She has had a benign post-op course and at time of discharge, vitals were within normal limits, afebrile, hemodynamically stable with no evidence of infection. DISCHARGE MEDICATIONS: Please see below. ALLERGIES: Please see below. PHYSICAL EXAMINATION ON DISCHARGE: VITAL SIGNS: normotensive, afebrile. Alert and oriented times three. Abdomen: Fundus firm at U-2. Soft, appropriately tender to palpation with no rebound/guarding. Pfannenstiel incision clean/dry/intact with steri strips overlying Extremities: no pain with palpation of legs LABORATORY DATA: Please see below. pre-op H/H: 12.1/37.9 post-op H/H: 9.7/30.8 DISCHARGE PLAN/INSTRUCTIONS: 1. Discharge to home today. 2. Rx Motrin and prn percocet for pain. Colace for bowel regimen. Iron for anemia. 3. Regular diet 4. Routine 2 week incision check with Dr. Law 5. Discussed return precautions for signs of wound infection, fevers/chills, heavy bleeding, anything concerning 6. Vaginal rest and no heavy lifting 6 weeks DISCHARGE CONDITION: Stable TIME SPENT ON DISCHARGE: Greater than 20 minutes. Vital Signs/I&Os Vital Signs Date Time Temp Pulse Resp B/P (MAP) Pulse Ox O2 Delivery O2 Flow Rate FiO2 12/12/20 02:10 16 12/12/20 02:00 98.9 100 135/80 (98) 100 Room Air Laboratory Data Labs 24H Laboratory Tests 2 12/11/20 07:16: Nucleated Red Blood Cells % (auto) 0.0 CBC/BMP Laboratory Tests 12/11/20 07:16 Discharge Medications Scheduled Glyburide (Glyburide) 5 Mg Tablet, 1 TAB PO BID, (Reported) No.137/Iron/Folic Acd ( Vitamin Tablet) 1 Each Tablet, 1 TAB PO DAILY, (Reported) Allergies Coded Allergies: No Known Allergies (Verified , 12/03/20) Gloria Buatista MD Dec 12, 2020 05:37
[2020-12-12] MEDS ORDERED: IBUP80TA PO (05:39)
[2020-12-12] MEDS ORDERED: PERCOCET PO (05:39)
[2020-12-12] MEDS ORDERED: DOK1CAP7 PO (05:39)
[2020-12-12] MEDS ORDERED: FERR1TAB8 PO (05:39)
[2020-12-12 05:49] VITALS: BP 132/73
[2020-12-12] MEDS: DOCUSATE SODIUM 100MG CAPSULE PO SCH (08:03)
[2020-12-12] MEDS: PRENATAL VITAMINS CHEWABLE TABLET PO SCH (08:03)
--- NOTE | 2020-12-13 09:24 | RO ---
OPERATIVE NOTE DATE OF OPERATION: 12/10/2020 Fara is a 20-year-old female with history of prior section, being admitted for elective repeat section. PREOPERATIVE DIAGNOSIS: Term with history of prior section. POSTOPERATIVE DIAGNOSIS: Term with history of prior section. PROCEDURES: 1. Repeat section. 2. Revision of old scar. SURGEON: Kevin Law DO COMPUTER ENGINEERING TECHNICIAN: Matilde Whitaker ANESTHESIA: Spinal. COMPLICATIONS: None. ESTIMATED BLOOD LOSS: 600 mL. FINDINGS: Live in occiput transverse position, Apgars 9 and 9, male ; weight 9 pounds 1 ounce. DESCRIPTION OF PROCEDURE: After obtaining informed consent, the patient was taken to the operating room where spinal anesthetic was found to be adequate and she was then draped and prepped in the usual sterile fashion in the supine position. At this point with the help of Matilde Whitaker an elliptical incision was made over the old scar, the old scar was removed. The incision was carried down to the fascia. The fascia was incised in the midline fashion and carried through the laterally. The superior aspect of the fascia was then grasped with a Love clamp and tented off and dissected off the rectus muscles sharply. The inferior aspect was dissected off in a similar fashion. Rectus muscles were in midline fashion. Peritoneum identified. Peritoneal cavity entered bluntly. Superior and inferior dissection of the peritoneum was then done with good visualization of the bladder. At this point, a Mobius skin retractor was placed. A low transverse uterine incision was made. The infant was delivered in atraumatic fashion. The nose and mouth bulb suctioned, the cord doubly clamped and cut and infant was handed over to the waiting warmer. Cord blood and cord gas was sent. Placenta removed manually. Uterus cleared of all clots and debris, and the uterine incision was then repaired in two separate layers of #0 Vicryl suture. Pelvis was copiously irrigated with normal saline and suctioned out. Attention turned to the peritoneum which was closed using 2-0 Vicryl in running fashion. The fascia was closed in two separate segments. All superficial bleeders coagulated. The skin was reapproximated in subcuticular fashion using 3-0 Vicryl on a Chavez. Steri-Strips placed. The patient tolerated the procedure well. She was then transferred to the recovery room in stable condition. cc: [facility]
== END 2020-12-12 11:40 | disposition home or self-care (01) | DRG 540 ==
LOC: EEVIPCON 05:11 → M LDI 05:11 → M OBS 10:17
PROVIDERS: ADMIT Obstetrics & Gynecology; ATTEND Obstetrics & Gynecology
PROC: 10D00Z1 Extraction of Products of Conception, Low, Open Approach (ICD-10-PCS; principal; 2020-12-10 07:30)
DX: O34.211 Maternal care for low transverse scar from previous cesarean delivery (principal); Z3A.39 39 weeks gestation of pregnancy; Z37.0 Single live birth

== ENCOUNTER 2020-12-30 15:18 | Inpatient (IN) | payer OTHER ==
[~2020-12-30] VITALS: Ht 160 cm; Wt 97.7 kg
[~2020-12-30 15:18] MED LIST changes: +DOK1CAP7 PO; +FERR1TAB8 PO; +PRENTAB9 PO
[2020-12-30] MEDS ORDERED: QC A650T3 PO (15:26)
[2020-12-30] MEDS ORDERED: ONDANSETRON 4MG/2ML VIAL IV ONE (16:40)
[2020-12-30] MEDS ORDERED: MORPHINE 4 MG/ML 1ML VIAL/SYRINGE (J2270) IV ONE (16:40)
[2020-12-30] MEDS ORDERED: ACETAMINOPHEN 325 MG TAB PO ONE (16:40)
[2020-12-30] MEDS ORDERED: NS 1,000 ML IV ONE ×2 (16:40→16:45)
--- NOTE | 2020-12-30 16:55 | REP ---
INDICATION: SEPSIS/SHOCK COMPARISON: 11/22/2016 TECHNIQUE: Portable AP view of the chest FINDINGS: The mediastinum and cardiac silhouette are stable and within normal limits for portable technique. The lung singh are clear without acute consolidation, effusion, or pneumothorax. Skeletal structures are intact. IMPRESSION: No acute cardiopulmonary process appreciated. <Electronically signed by Wander Cook > 12/30/20 [id number]
[2020-12-30 17:18] LABS: VENOUS BASE EXCESS -1.1 (-2.0-2.0); VENOUS HCO3 22.8 MEQ/L (23.0-27.0); VENOUS O2 SATURATION 73.5 % (60.0-80.0); VENOUS PARTIAL PRESSURE CO2 35.1 mmHg (38.0-50.0); VENOUS PARTIAL PRESSURE O2 41.1 mmHg (30.0-50.0); VENOUS STANDARD HCO3 23.1 MEQ/L; VENOUS TOTAL CO2 23.9 MEQ/L (24.0-28.0)
--- NOTE | 2020-12-30 17:33 | REP ---
INDICATION: c section incx COMPARISON: None. TECHNIQUE: Real time jimenez scale ultrasound examination using linear high-frequency transducer. FINDINGS: Directed ultrasound examination overlying the Caesarean section scar demonstrates normal subcutaneous tissue. No fluid collection/hematoma or abnormality noted by ultrasound. IMPRESSION: Unremarkable examination <Electronically signed by Wander Cook > 12/30/20 [id number]
[2020-12-30 17:41] LABS: BASO % 0.2 % (0.0-1.0); EOS # 0.1 10^3/uL (0.0-0.5); EOS % 0.8 % (0.0-3.0); HEMATOCRIT 31.4 % (36.0-47.0); HEMOGLOBIN 9.9 g/dl (12.0-15.5); LYMPH # 1.3 10^3/uL (1.5-5.0); LYMPH % 9.9 % (24.0-44.0); MEAN CORPUSCULAR HEMOGLOBIN 28.6 pg (27.0-33.0); MEAN CORPUSCULAR HGB CONC 31.5 g/dl (32.0-36.5); MEAN CORPUSCULAR VOLUME 90.8 fl (80.0-96.0); MONO # 1.2 10^3/uL (0.0-0.8); NEUTROPHILS # 10.3 10^3/uL (1.5-8.5); NEUTROPHILS % 79.6 % (36.0-66.0); PLATELET COUNT, AUTOMATED 400 10^3/uL (150-450); RED BLOOD COUNT 3.46 10^6/uL (4.00-5.40); WHITE BLOOD COUNT 12.9 10^3/uL (4.0-10.0)
[2020-12-30 18:00] LABS: ALBUMIN 2.8 GM/DL (3.2-5.2); ALT/SGPT 17 U/L (12-78); BILIRUBIN,DIRECT 0.3 MG/DL (0.0-0.2); BILIRUBIN,TOTAL 0.5 MG/DL (0.2-1.0); BLOOD UREA NITROGEN 9 MG/DL (7-18); CALCIUM LEVEL 8.5 MG/DL (8.5-10.1); CARBON DIOXIDE LEVEL 24 MEQ/L (21-32); CHLORIDE LEVEL 108 MEQ/L (98-107); CREATININE FOR GFR 0.47 MG/DL (0.55-1.30); GLOMERULAR FILTRATION RATE > 60.0 (>60); GLUCOSE, FASTING 107 MG/DL (70-100); POTASSIUM SERUM 3.6 MEQ/L (3.5-5.1); SODIUM LEVEL 139 MEQ/L (136-145)
[2020-12-30 18:02] LABS: INR 1.12; PROTHROMBIN TIME 14.7 SECONDS (12.5-14.3)
[2020-12-30 18:03] LABS: AMYLASE 25 U/L (25-115); CK-MB VALUE MASS < 1.0 NG/ML (<3.6); CPK CREATINE PHOSPHOKINASE 26 U/L (26-192); MB/CK RELATIVE INDEX 3.85 (< OR =4); PARTIAL THROMBOPLASTIN TIME 31.4 SECONDS (24.2-38.5); TROPONIN I < 0.02 NG/ML (< 0.10)
[2020-12-30] MEDS ORDERED: PIPERACILLIN/TAZOBACTAM SOD 3.375 GM in D5W MINI-BAG PLUS 50 ML IV ONE ×2 (19:30→21:05)
[2020-12-30 19:43] LABS: RSV AMPLIFICATION NEGATIVE (NEGATIVE)
[2020-12-30 19:43] LABS: APPEARANCE, URINE CLEAR (CLEAR); BACTERIA, URINE AUTO 1+ (NEGATIVE); BILIRUBIN, URINE AUTO NEGATIVE (NEGATIVE); BLOOD, URINE BLOOD NEGATIVE (NEGATIVE); COLOR, URINE YELLOW (YELLOW); GLUCOSE, URINE (UA) AUTO NEGATIVE (NEGATIVE); KETONE, URINE AUTO NEGATIVE (NEGATIVE); LEUKOCYTE ESTERASE, URINE AUTO TRACE (NEGATIVE); MUCUS, URINE SMALL (NEGATIVE); NITRITE, URINE AUTO NEGATIVE (NEGATIVE); PROTEIN, URINE AUTO NEGATIVE (NEGATIVE); RBC, URINE AUTO 2 /HPF (0-3); SPECIFIC GRAVITY URINE AUTO 1.009 (1.002-1.035); SQUAMOUS EPITHELIAL CELL UR AU 4 /HPF (0-6); WBC, URINE AUTO 5 /HPF (0-3)
--- NOTE | 2020-12-30 19:55 | REPVR ---
PROCEDURE INFORMATION: Exam: CT Abdomen And Pelvis Without Contrast Exam date and time: 12/30/2020 6:44 PM Age: 20 years old Clinical indication: Abdominal pain; Additional info: Abd pain TECHNIQUE: Imaging protocol: Computed tomography of the abdomen and pelvis without contrast. Radiation optimization: All CT scans at this facility use at least one of these dose optimization techniques: automated exposure control; mA and/or kV adjustment per patient size (includes targeted exams where dose is matched to clinical indication); or iterative reconstruction. COMPARISON: CT ABD PELVIS W/O CONTRAST 02/23/2018 12:19 AM FINDINGS: Limitations: Absence of intravenous contrast limits evaluation of vascular and visceral structures. Lungs: The lung bases are unremarkable. Liver: There are no focal liver lesions. Gallbladder and bile ducts: The gallbladder is unremarkable. Pancreas: The pancreas is normal. Spleen: The spleen is unremarkable. Adrenal glands: The adrenal glands are unremarkable. Kidneys and ureters: The kidneys are unremarkable. Stomach and bowel: There is no evidence of intestinal obstruction. Appendix: The appendix measures up to 1 cm in width which is enlarged however it is air filled likely accounting for the distension and there is no periappendiceal inflammation. Series 201, images 85-95. Intraperitoneal space: Unremarkable. No free air. No significant fluid collection. Vasculature: The aorta is unremarkable. Lymph nodes: Unremarkable. No enlarged lymph nodes. Urinary bladder: The bladder is unremarkable. Reproductive: The uterus is enlarged consistent with post gravid. Bones/joints: Unremarkable. No acute fracture. Soft tissues: There is a midline probable seroma/hematoma extending from the lower pelvis superiorly to the level of the umbilicus where it is seen predominantly involving the left rectus abdominus muscle. Several air bubbles are seen within the fluid collection at its superior margin. The probable seroma/hematoma measures 19.3 cm in width x 6.2 cm AP x 14.6 cm in length. IMPRESSION: 1. There is a large anterior abdominal wall seroma/hematoma measuring 19.3 x 6.2 x 14.6 cm. On its superior extent it involves the left rectus abdominus muscle extending inferiorly in the midline. The fluid collection does contain air along its superior extent. 2. Enlargement of the appendix however this is likely due to its being distended with air and there is no periappendiceal inflammation to suggest acute appendicitis. Electronically signed by: Tiera Turner On 12/30/2020 19:54:36 PM
[2020-12-30] MEDS ORDERED: PERCOCET 5MG/325MG TAB PO PRN (21:05)
[2020-12-30] MEDS ORDERED: ONDANSETRON 4MG/2ML VIAL IV PRN (21:05)
--- NOTE | 2020-12-30 21:27 | HPEPDOC ---
Obstetrical History & Physical General Date of Admission History of Present Illness 20-year-old G3, P3 who is status post scheduled elective repeat low transverse section on 12/10/2020 Dr. Law. Her hospital course was uncomplicated, and she was discharged on 12/12/2020. 3 days ago she started to notice increasing pain, particularly left lower abdomen. This evening she noticed she had developed a fever, and her pain was not improving despite pain medications at home. She denies any heavy irregular uterine bleeding, or foul odor/discharge. She is ambulating, but uncomfortably. She is tolerating meals, but she is having a lack of appetite over the last 24 hours. She is having daily bowel movements. She is not having any significant issues with urinating. Denies dysuria or hematuria. She is breast feeding/pumping. No breast complaints. Workup in the emergency department included imaging via CT abdomen and pelvis, which revealed a large anterior abdominal wall seroma/hematoma measuring 19.3 x 6.2 x 14.6 cm. her white blood cell count was 12.9 K. hemoglobin and hematocrit 10 and 31 respectively. PMH: obesity SH: LTCS x 2 Meds: PNV All: NKDA OB: x 1, LTCS x 2 [employer]: no STI ,no dysplasia Sochx: no t/e/d O: Mild tachycardia, normotensive, MAXIMUM TEMPERATURE 102.4 Fahrenheit H: no m/g/r L: CTA b/l Abd: Incision is c/d/i with no significant erythema or induration. Left abdominal wall with significant tenderness with deep palpation, but body habitus makes it difficult to appreciate location of hematoma / induration. Ext: no c/c/e A/P: 20yo with postoperative rectus sheath hematoma, possible developing abscess. -Admit for pain control, IV antibiotics, and close monitoring. -Management options reviewed with patient to include expectant, medical, and surgical. -Decision made together to await consultation with Radiology in AM for possible image-guided drainage. Alternative plan will be made if patient's clinical status significantly deteriorates between now and then. Norm Torres DO Past Medical History Allergies Coded Allergies: No Known Allergies (Verified , 12/03/20) Medications Scheduled Acetaminophen (Acetaminophen 8 Hour) 650 Mg Tablet.er, 1,000 MG PO TID Ibuprofen (Ibuprofen) 800 Mg Tablet, 800 MG PO Q8H No.137/Iron/Folic Acd ( Vitamin Tablet) 1 Each Tablet, 1 TAB PO DAILY Physical Examination Physical Examination GENERAL: Alert and oriented times three. BREAST: . ABDOMEN: Gravid and non-tender to touch. FETUS: Is vertex (VTX) by sterile vaginal examination (SVE), fetus is vertex (VTX) by Vivek. HEART RATE: Regular rate and rhythm. LUNGS: Clear to auscultation (CTA). EXTREMITIES: No edema. No clonus. Deep tendon reflexes (DTRs) + . Vital Signs/I&O Vital Signs Date Time Temp Pulse Resp B/P (MAP) Pulse Ox O2 Delivery O2 Flow Rate FiO2 12/30/20 17:50 18 100 12/30/20 17:22 12/30/20 16:57 102.4 12/30/20 15:19 149 Room Air Laboratory Data 24H LABS Laboratory Tests 2 12/30/20 17:12: Immature Granulocyte % (Auto) 0.5, Neutrophils (%) (Auto) 79.6H, Lymphocytes (%) (Auto) 9.9L, Monocytes (%) (Auto) 9.0H, Eosinophils (%) (Auto) 0.8, Basophils (%) (Auto) 0.2, Neutrophils # (Auto) 10.3H, Lymphocytes # (Auto) 1.3L, Monocytes # (Auto) 1.2H, Eosinophils # (Auto) 0.1, Basophils # (Auto) 0.0, Nucleated Red Blood Cells % (auto) 0.0, Prothrombin Time 14.7H, Prothromb Time International Ratio 1.12, Activated Partial Thromboplast Time 31.4, Blood Gas Bicarbonate Standard 23.1, Venous Blood pH 7.430, Venous Blood Partial Pressure CO2 35.1L, Venous Blood Partial Pressure O2 41.1, Venous Blood Total Carbon Dioxide 23.9L, Venous Blood HCO3 22.8L, Venous Blood Oxygen Saturation 73.5, Venous Blood Base Excess -1.1, Lactic Acid Level 1.0, Total Creatine Kinase 26, Creatine Kinase MB < 1.0, Creatine Kinase MB Relative Index 3.85, Troponin I < 0.02, C-Reactive Protein, Quantitative 16.30H, Amylase Level 25 12/30/20 17:18: Anion Gap 7L, Glomerular Filtration Rate > 60.0, Calcium Level 8.5, Total Bilirubin 0.5, Direct Bilirubin 0.3H, Aspartate Amino Transf (AST/SGOT) 31, Alanine Aminotransferase (ALT/SGPT) 17, Alkaline Phosphatase 141H, Total Protein 7.0, Albumin 2.8L, Albumin/Globulin Ratio 0.7L 12/30/20 18:42: Coronavirus (COVID-19)(PCR) NEGATIVE, Influenza Type A (RT-PCR) NEGATIVE, Influenza Type B (RT-PCR) NEGATIVE, Respiratory Syncytial Virus (PCR) NEGATIVE 12/30/20 19:06: Urine Color YELLOW, Urine Appearance CLEAR, Urine pH 6.0, Urine Specific Eads 1.009, Urine Protein NEGATIVE, Urine Glucose (Auto)(UA) NEGATIVE, Urine Ketones (Auto) NEGATIVE, Urine Blood NEGATIVE, Urine Nitrite NEGATIVE, Urine Bilirubin NEGATIVE, Urine Urobilinogen 4.0H, Urine Leukocyte Esterase (Auto) TRACEH, Urine WBC (Auto) 5H, Urine RBC (Auto) 2, Urine Hyaline Casts (Auto) 0, Urine Bacteria (Auto) 1+H, Urine Squamous Epithelial Cells 4, Urine Mucus (Auto) SMALL, Urine Sperm (Auto) CBC/BMP Laboratory Tests 12/30/20 17:12 12/30/20 17:18 Microbiology Microbiology 12/30/20 Blood Culture, Received Pending Assessment/Plan Assessment see note above Plan see note above VANGIE TORRES DO Dec 30, 2020 21:26
[2020-12-30] MEDS: NS 1,000 ML IV SCH (21:46)
[2020-12-30 23:30] VITALS: BP 133/76
[2020-12-30] MEDS: IBUPROFEN 800 MG TAB PO PRN (23:44)
[2020-12-31 04:00] VITALS: BP 101/58
[2020-12-31] MEDS: PIPERACILLIN/TAZOBACTAM SOD 3.375 GM in D5W MINI-BAG PLUS 50 ML IV SCH ×4 (04:09→21:59)
[2020-12-31] MEDS: NS 1,000 ML IV SCH ×3 (04:09→21:59)
[2020-12-31] MEDS: PERCOCET 5MG/325MG TAB PO PRN ×2 (05:09→16:15)
[2020-12-31 06:12] VITALS: BP 127/70
[2020-12-31 06:49] LABS: BASO % 0.2 % (0.0-1.0); EOS # 0.2 10^3/uL (0.0-0.5); EOS % 1.7 % (0.0-3.0); HEMATOCRIT 28.2 % (36.0-47.0); HEMOGLOBIN 8.6 g/dl (12.0-15.5); LYMPH # 1.1 10^3/uL (1.5-5.0); LYMPH % 11.3 % (24.0-44.0); MEAN CORPUSCULAR HEMOGLOBIN 28.1 pg (27.0-33.0); MEAN CORPUSCULAR HGB CONC 30.5 g/dl (32.0-36.5); MEAN CORPUSCULAR VOLUME 92.2 fl (80.0-96.0); MONO % 10.6 % (2.0-8.0); NEUTROPHILS # 7.4 10^3/uL (1.5-8.5); NEUTROPHILS % 75.7 % (36.0-66.0); PLATELET COUNT, AUTOMATED 347 10^3/uL (150-450); RED BLOOD COUNT 3.06 10^6/uL (4.00-5.40); WHITE BLOOD COUNT 9.8 10^3/uL (4.0-10.0)
[2020-12-31 07:22] LABS: ALBUMIN 2.3 GM/DL (3.2-5.2); ALT/SGPT 15 U/L (12-78); BILIRUBIN,TOTAL 0.6 MG/DL (0.2-1.0); BLOOD UREA NITROGEN 7 MG/DL (7-18); CALCIUM LEVEL 7.9 MG/DL (8.5-10.1); CARBON DIOXIDE LEVEL 24 MEQ/L (21-32); CHLORIDE LEVEL 111 MEQ/L (98-107); CREATININE FOR GFR 0.34 MG/DL (0.55-1.30); GLOMERULAR FILTRATION RATE > 60.0 (>60); GLUCOSE, FASTING 95 MG/DL (70-100); POTASSIUM SERUM 3.4 MEQ/L (3.5-5.1); SODIUM LEVEL 141 MEQ/L (136-145); TOTAL PROTEIN 6.2 GM/DL (6.4-8.2)
[2020-12-31 08:00] VITALS: BP 148/87
--- NOTE | 2020-12-31 08:27 | IPNPDOC ---
Subjective Date Seen The patient was seen on 12/31/20. Subjective Chief Complaint/HPI Patient is feeling improved with pain medication, IV hydration, and IV antibiotic. Of note, she passed a large amount of purulent discharge from the vagina earlier this morning. Discharge/drainage did not persist. Ambulating, tolerating PO, voiding spontaneously. Objective Physical Examination General Exam: Positive: Alert, Cooperative, No Acute Distress, Mild Distress, Other Chest Exam: Positive: Clear to auscultation, Normal air movement Heart Exam: Positive: Rate Normal, Regular Rhythm, Normal S1, Normal S2; Negative: Murmurs, Rubs Abdomen Exam: Positive: Normal bowel sounds, Soft, Tenderness, Other (incision remains clean, dry, intact without surrounding erythema or induration.) Extremity Exam: Positive: Normal pulses; Negative: Clubbing, Cyanosis, Edema Neuro Exam: Positive: Normal Gait, Normal Speech, Cranial Nerves 3-12 NL, Reflexes 2+ Psych Exam: Positive: Mental status NL, Mood NL, Oriented x 3 Assessment /Plan Assessment 20yo s/p RLTCS on 12/10, now with anterior abdominal wall (suprafascial/extraper itoneal) fluid collection. Possible abscess formation. Clinically improving since last night; afebrile, decreasing WBC. -Plan is for attempt at ultrasound guided drainage of fluid collection. Rad iology notified / aware of patient and they will coordinate to perform this procedure later today. Plan/VTE VTE Prophylaxis Ordered?: Yes VS, I&O, 24H, Fishbone Vital Signs/I&O Vital Signs Date Time Temp Pulse Resp B/P (MAP) Pulse Ox O2 Delivery O2 Flow Rate FiO2 12/31/20 06:12 98.3 103 20 127/70 (89) 99 Room Air I&O- Last 24 Hours up to 6 AM 12/31/20 06:00 Intake Total 3050 ml Output Total 600 ml Balance 2450 ml Laboratory Data 24H LABS Laboratory Tests 2 12/30/20 17:12: Immature Granulocyte % (Auto) 0.5, Neutrophils (%) (Auto) 79.6H, Lymphocytes (%) (Auto) 9.9L, Monocytes (%) (Auto) 9.0H, Eosinophils (%) (Auto) 0.8, Basophils (%) (Auto) 0.2, Neutrophils # (Auto) 10.3H, Lymphocytes # (Auto) 1.3L, Monocytes # (Auto) 1.2H, Eosinophils # (Auto) 0.1, Basophils # (Auto) 0.0, Nucleated Red Blood Cells % (auto) 0.0, Prothrombin Time 14.7H, Prothromb Time International Ratio 1.12, Activated Partial Thromboplast Time 31.4, Blood Gas Bicarbonate Standard 23.1, Venous Blood pH 7.430, Venous Blood Partial Pressure CO2 35.1L, Venous Blood Partial Pressure O2 41.1, Venous Blood Total Carbon Dioxide 23.9L, Venous Blood HCO3 22.8L, Venous Blood Oxygen Saturation 73.5, Venous Blood Base Excess -1.1, Lactic Acid Level 1.0, Total Creatine Kinase 26, Creatine Kinase MB < 1.0, Creatine Kinase MB Relative Index 3.85, Troponin I < 0.02, C-Reactive Protein, Quantitative 16.30H, Amylase Level 25 12/30/20 17:18: Anion Gap 7L, Glomerular Filtration Rate > 60.0, Calcium Level 8.5, Total Bilirubin 0.5, Direct Bilirubin 0.3H, Aspartate Amino Transf (AST/SGOT) 31, Alanine Aminotransferase (ALT/SGPT) 17, Alkaline Phosphatase 141H, Total Protein 7.0, Albumin 2.8L, Albumin/Globulin Ratio 0.7L 12/30/20 18:42: Coronavirus (COVID-19)(PCR) NEGATIVE, Influenza Type A (RT-PCR) NEGATIVE, Influenza Type B (RT-PCR) NEGATIVE, Respiratory Syncytial Virus (PCR) NEGATIVE 12/30/20 19:06: Urine Color YELLOW, Urine Appearance CLEAR, Urine pH 6.0, Urine Specific [place] 1.009, Urine Protein NEGATIVE, Urine Glucose (Auto)(UA) NEGATIVE, Urine Ketones (Auto) NEGATIVE, Urine Blood NEGATIVE, Urine Nitrite NEGATIVE, Urine Bilirubin NEGATIVE, Urine Urobilinogen 4.0H, Urine Leukocyte Esterase (Auto) TRACEH, Urine WBC (Auto) 5H, Urine RBC (Auto) 2, Urine Hyaline Casts (Auto) 0, Urine Bacteria (Auto) 1+H, Urine Squamous Epithelial Cells 4, Urine Mucus (Auto) SMALL, Urine Sperm (Auto) 12/31/20 06:27: Lactic Acid Level 1.0 12/31/20 06:28: Immature Granulocyte % (Auto) 0.5, Neutrophils (%) (Auto) 75.7H, Lymphocytes (%) (Auto) 11.3L, Monocytes (%) (Auto) 10.6H, Eosinophils (%) (Auto) 1.7, Basophils (%) (Auto) 0.2, Neutrophils # (Auto) 7.4, Lymphocytes # (Auto) 1.1L, Monocytes # (Auto) 1.0H, Eosinophils # (Auto) 0.2, Basophils # (Auto) 0.0, Nucleated Red Blood Cells % (auto) 0.0, Anion Gap 6L, Glomerular Filtration Rate > 60.0, Calcium Level 7.9L, Total Bilirubin 0.6, Aspartate Amino Transf (AST/SGOT) 23, Alanine Aminotransferase (ALT/SGPT) 15, Alkaline Phosphatase 132H, Total Protein 6.2L, Albumin 2.3L, Albumin/Globulin Ratio 0.6L CBC/BMP Laboratory Tests 12/30/20 17:12 12/30/20 17:18 12/31/20 06:28 Microbiology Microbiology 12/30/20 Blood Culture, Received Pending 12/30/20 Blood Culture, Received Pending VANGIE TORRES DO Dec 31, 2020 08:27
[2020-12-31] MEDS ORDERED: LIDOCAINE 1% MDV 20ML VIAL As Ordered ONE (09:16)
[2020-12-31] MEDS: IBUPROFEN 800 MG TAB PO PRN ×2 (10:14→21:59)
[2020-12-31] MEDS: DOCUSATE SODIUM 100MG CAPSULE PO SCH ×2 (10:14→21:59)
[2020-12-31 11:58] VITALS: BP 140/67
[2020-12-31 15:54] VITALS: BP 131/71
[2020-12-31 22:00] VITALS: BP 117/68
[2021-01-01] MEDS: PERCOCET 5MG/325MG TAB PO PRN (01:32)
[2021-01-01 04:00] VITALS: BP 121/74
[2021-01-01] MEDS: PIPERACILLIN/TAZOBACTAM SOD 3.375 GM in D5W MINI-BAG PLUS 50 ML IV SCH ×2 (04:26→09:26)
[2021-01-01] MEDS: IBUPROFEN 800 MG TAB PO PRN (06:11)
[2021-01-01] MEDS ORDERED: PERCOCET PO (07:59)
[2021-01-01] MEDS ORDERED: AUGM875T28 PO (07:59)
--- NOTE | 2021-01-01 08:00 | REP ---
INDICATION: left sided large anterior abdominal wall fluid collection. COMPARISON: None. TECHNIQUE: The procedure was performed under the direct supervision of Dr. Bonilla. The patient has a history of a 19.3 x 6.2 x 14.6 cm anterior abdominal wall seroma/hematoma seen on a previous CT scan dated 12/30/2020. The risks and benefits of the procedure were explained to the patient and informed consent was obtained. The fluid collection was localized using ultrasound guidance. The skin was prepped and draped in a sterile fashion. 1% lidocaine was used as a local anesthetic. Using ultrasound guidance a 10 Serbian skater APDL catheter was inserted using trocar technique. 85 cc of beige proteinaceous fluid was withdrawn and sent to the lab for analysis. The catheter was affixed to the skin and a sterile dressing was applied. The patient tolerated the procedure well and there were no immediate complications. FINDINGS: Abdominal wall abscess. IMPRESSION: Ultrasound-guided abscess drain with catheter placement. <Electronically signed by Leobardo Omer > 12/31/20 1501 <Electronically signed by Yuri Bonilla > 01/01/21 [id number]
--- NOTE | 2021-01-01 08:19 | IPNPDOC ---
Text Note Date of Service The patient was seen on 01/01/21. NOTE Progress Note Fara is a 20yo s/p RLTCS on 12/10 admitted for large anterior abdominal wall (suprafascial/extraperitoneal) hematoma with possible abscess conversion. She was febrile upon admission, but has now been afebrile for >24hr on IV zosyn. Yesterday she had placement of a pigtail drain into the hematoma/abscess and it has been draining consistently a serosanguinous liquid with purulent appearing "sediment", only 30cc between 7p and 4a, but on appearance this morning over the last 3 hours there has been at least 50cc of drainage if not more. Patient's pain has been improving. She is tolerating regular diet without nausea/vomiting. She is ambulating and voiding without issue. She has had occasional foul smelling vaginal discharge, but nothing overnight. Vitals wnl, afebrile General: WDWN, resting comfortably in bed, NAD Abdomen: obese, soft, mildly tender to palpation over lower quadrants but NO rebound/guarding. Pfannenstiel incision is well healed with no erythema/drainage. There is a dressing covering insertion point of abdominal drain in the LLQ Extremities: no edema of BLE, no tenderness with palpation of calves and negati ve Bess's sign Labs: 12/30: WBC 12.9, H/H 9.9/31.4. CRP 16.3 12/31: WBC 9.8, H/H 8.6/28.2 Aerobic and Anaerobic cultures from hematoma/abscess pending. Gram stain: gram pos cocci in pairs, gram neg rods, gram pos rods Assessment: Fara is a 20yo s/p RLTCS on 12/10 admitted for large anterior abdominal wall (suprafascial/extraperitoneal) hematoma with possible abscess conversion doing well after initiation of zosyn and drainage by radiology with drain still in place. She has been afebrile >24hr, WBC decreased from 12.9 to 9.8 and patient's pain has been decreasing. Vitals wnl, exam is only significant for mild abdominal TTP in lower quadrants. She strongly desires discharge. Plan: -Discharge home -I spoke with Dr. Law regarding follow up and he will see her in the office on 01/07 at which point he will assess for possible drain removal. I spoke with Dr. Bonilla who explained drain is pigtail but if hub is cut, coil retracts and therefore ok to remove in office when daily drainage is <10cc, which I relayed to Dr. Law. -Patient to start augmentin 875mg q12hr x10 days to provide broad coverage as cultures are still pending -Regular diet -No heavy lifting -Patient will be instructed on drain emptying and care prior to discharge -Strict return precautions for increasing pain, recurrence of fevers, or anything else concerning Gloria Bautista MD VS,Aristeo, I+O VS, Aristeo I+O Vital Signs Date Time Temp Pulse Resp B/P (MAP) Pulse Ox O2 Delivery O2 Flow Rate FiO2 01/01/21 04:00 97.0 74 18 121/74 (90) 100 Room Air I&O- Last 24 Hours up to 6 AM 01/01/21 06:00 Intake Total 3540 ml Output Total 1290 ml Balance 2250 ml Gloria Bautista MD Jan 01, 2021 08:19
--- NOTE | 2021-01-01 08:23 | DS.PDOC ---
Discharge Summary General Date of Admission Dec 30, 2020 at 21:05 Date of Discharge Jan 01, 2021 Discharge Summary PROCEDURES PERFORMED DURING STAY: ultrasound guided placement of abdominal (rectus sheath) drain by radiology ADMITTING DIAGNOSES: 1. Post-operative from section, large anterior abdominal wall (suprafascial/extraperitoneal) hematoma with possible abscess conversion DISCHARGE DIAGNOSES: 1. Post-operative from section, large anterior abdominal wall (suprafascial/extraperitoneal) hematoma with possible abscess conversion COMPLICATIONS/CHIEF COMPLAINT: Rectus Sheath Hematoma. HISTORY OF PRESENT ILLNESS/HOSPITAL COURSE: Fara is a 20yo s/p RLTCS on 12/10 admitted for large anterior abdominal wall (suprafascial/extraperitoneal) hematoma with possible abscess conversion doing well after initiation of zosyn and drainage by radiology with drain still in place. She has been afebrile >24hr, WBC decreased from 12.9 to 9.8 and patient's pain has been decreasing. Vitals wnl, exam is only significant for mild abdominal TTP in lower quadrants. She strongly desires discharge. DISCHARGE MEDICATIONS: Please see below. ALLERGIES: Please see below. PHYSICAL EXAMINATION ON DISCHARGE: Vitals wnl, afebrile General: WDWN, resting comfortably in bed, NAD Abdomen: obese, soft, mildly tender to palpation over lower quadrants but NO rebound/guarding. Pfannenstiel incision is well healed with no erythema/ drainage. There is a dressing covering insertion point of abdominal drain in the LLQ Extremities: no edema of BLE, no tenderness with palpation of calves and negative Bess's sign LABORATORY DATA: Please see below. 12/30: WBC 12.9, H/H 9.9/31.4. CRP 16.3 12/31: WBC 9.8, H/H 8.6/28.2 Aerobic and Anaerobic cultures from hematoma/abscess pending. Gram stain: gram pos cocci in pairs, gram neg rods, gram pos rods IMAGING: Abdominal/Pelvic CT: 1. There is a large anterior abdominal wall seroma/hematoma measuring 19.3 x 6.2 x 14.6 cm. On its superior extent it involves the left rectus abdominus muscle extending inferiorly in the midline. The fluid collection does contain air along its superior extent. 2. Enlargement of the appendix however this is likely due to its being distended with air and there is no periappendiceal inflammation to suggest acute appendicitis. ACTIVITY: As tolerated. No heavy lifting. DIET: regular DISCHARGE PLAN/INSTRUCTIONS: -Discharge home -I spoke with Dr. Law regarding follow up and he will see her in the office on 01/07 at which point he will assess for possible drain removal. I spoke with Dr. Bonilla who explained drain is pigtail but if hub is cut, coil retracts and therefore ok to remove in office when daily drainage is <10cc, which I relayed to Dr. Law. -Patient to start augmentin 875mg q12hr x10 days to provide broad coverage as cultures are still pending -Regular diet -No heavy lifting -Patient will be instructed on drain emptying and care prior to discharge -Strict return precautions for increasing pain, recurrence of fevers, or anything else concerning DISCHARGE CONDITION: Stable TIME SPENT ON DISCHARGE: Greater than 30 minutes. Gloria Bautista MD Vital Signs/I&Os Vital Signs Date Time Temp Pulse Resp B/P (MAP) Pulse Ox O2 Delivery O2 Flow Rate FiO2 01/01/21 04:00 97.0 74 18 121/74 (90) 100 Room Air I&O- Last 24 Hours up to 6 AM 01/01/21 06:00 Intake Total 3540 ml Output Total 1290 ml Balance 2250 ml Microbiology Microbiology 12/31/20 Gram Stain - Final, Resulted 12/31/20 Abscess Culture, Resulted Pending 12/31/20 Anaerobic Culture, Received Pending 12/30/20 Blood Culture - Preliminary, Resulted No growth after 24 hours . All specim... 12/30/20 Blood Culture - Preliminary, Resulted No growth after 24 hours . All specim... Discharge Medications Scheduled Amoxicillin/Potassium Clav (Augmentin 875-125 Tablet) 1 Each Tablet, 1 TAB PO BID Ibuprofen (Ibuprofen) 800 Mg Tablet, 800 MG PO Q8H No.137/Iron/Folic Acd ( Vitamin Tablet) 1 Each Tablet, 1 TAB PO DAILY, (Reported) Scheduled PRN Oxycodone/Acetaminophen (Oxycodone-Acetaminophen 5-325) 1 Each Tablet, 1 TAB PO Q4H PRN for MILD/MODERATE PAIN (PS 1-7) Allergies Coded Allergies: No Known Allergies (Verified , 12/03/20) Gloria Bautista MD Jan 01, 2021 08:23
[2021-01-01 08:24] VITALS: BP 119/80
[2021-01-01] MEDS: DOCUSATE SODIUM 100MG CAPSULE PO SCH (09:26)
--- NOTE | 2021-01-01 12:27 | ECGEPIP ---
[facility] - ED Test Date: 2020-12-30 Pat Name: BRIANNE MUÑOZ Department: Room: - Gender: Female [employer] Operator: jem : 2000 Requested By: PATRICK HOBSON Order Number: [id number] Reading MD: Era Scanlon Measurements Intervals Novelty Rate: 132 P: 45 UT: 140 QRS: 0 QRSD: 80 T: 32 QT: 302 QTc: 447 Interpretive Statements Sinus tachycardia Cannot rule out Anterior infarct , age undetermined NSTTW abnormalities increased rate 11/26/20 Electronically Signed on 01-01-2021 12:26:59 EDT by Era Scanlon
== END 2021-01-01 11:45 | disposition home or self-care (01) | DRG 561 ==
LOC: M ED 15:18 → M ED INP 21:05 → ENRESERV 21:52 → M PED 23:17
PROVIDERS: ADMIT Obstetrics & Gynecology; ATTEND Obstetrics & Gynecology
PROC: 0W9F30Z Drainage of Abdominal Wall with Drainage Device, Percutaneous Approach (ICD-10-PCS; principal; 2020-12-31 09:00)
DX: O90.2 Hematoma of obstetric wound (principal); O86.02 Infection of obstetric surgical wound, deep incisional site

== ENCOUNTER → 2021-07-17 | Outpatient (CLI) | payer OTHER ==
[~2021-07-17] MED LIST changes: +AUGM875T28 PO; +DOK1CAP4 PO; -DOK1CAP7 PO; +QC A650T3 PO
== END ==
LOC: M LABSMTC 10:27
PROVIDERS: ATTEND Family Medicine
DX: Z20.822 Contact with and (suspected) exposure to COVID-19 (principal)

== ENCOUNTER → 2022-04-29 | Outpatient (CLI) | payer OTHER ==
[2022-04-29 10:59] LABS: BASO % 0.6 % (0.0-1.0); EOS # 0.4 10^3/uL (0.0-0.5); EOS % 6.1 % (0.0-3.0); HEMATOCRIT 41.7 % (36.0-47.0); HEMOGLOBIN 13.7 g/dl (12.0-15.5); LYMPH % 29.4 % (24.0-44.0); MEAN CORPUSCULAR HEMOGLOBIN 31.1 pg (27.0-33.0); MEAN CORPUSCULAR HGB CONC 32.9 g/dl (32.0-36.5); MEAN CORPUSCULAR VOLUME 94.6 fl (80.0-96.0); MONO # 0.6 10^3/uL (0.0-0.8); MONO % 9.3 % (2.0-8.0); NEUTROPHILS # 3.8 10^3/uL (1.5-8.5); NEUTROPHILS % 54.3 % (36.0-66.0); PLATELET COUNT, AUTOMATED 280 10^3/uL (150-450); RED BLOOD COUNT 4.41 10^6/uL (4.00-5.40); WHITE BLOOD COUNT 6.9 10^3/uL (4.0-10.0)
[2022-04-29 11:10] LABS: HEMOGLOBIN A1c 5.3 %
[2022-04-29 11:28] LABS: ALBUMIN 3.7 GM/DL (3.2-5.2); ALT/SGPT 30 U/L (12-78); BILIRUBIN,TOTAL 0.3 MG/DL (0.2-1.0); BLOOD UREA NITROGEN 9 MG/DL (7-18); CALCIUM LEVEL 9.2 MG/DL (8.5-10.1); CARBON DIOXIDE LEVEL 25 MEQ/L (21-32); CHLORIDE LEVEL 111 MEQ/L (98-107); CHOLESTEROL LEVEL 144 MG/DL (<200); CREATININE FOR GFR 0.53 MG/DL (0.55-1.30); FREE T4 1.04 NG/DL (0.76-1.46); GLOMERULAR FILTRATION RATE > 60.0 (>60); GLUCOSE, FASTING 99 MG/DL (70-100); HDL CHOLESTEROL 48 MG/DL (>40); LDL CHOLESTEROL 83 MG/DL (<100); NON-HDL-C 96 MG/DL; POTASSIUM SERUM 5.3 MEQ/L (3.5-5.1); SODIUM LEVEL 139 MEQ/L (136-145); TOTAL PROTEIN 7.5 GM/DL (6.4-8.2); TRIGLYCERIDES LEVEL 67 MG/DL (<150)
[2022-04-29 12:02] LABS: TOTAL 25(OH) VITAMIN D 40.4 NG/ML (30.0-100.0)
== END ==
LOC: M LAB 10:16
PROVIDERS: ATTEND Nurse Practitioner Family
DX: Z00.00 Encounter for general adult medical examination without abnormal findings (principal); Z86.32 Personal history of gestational diabetes; Z13.220 Encounter for screening for lipoid disorders; R53.83 Other fatigue; E55.9 Vitamin D deficiency, unspecified

== ENCOUNTER → 2022-05-13 | Outpatient (CLI) | payer OTHER ==
[~2022-05-13] MED LIST changes: +CONC18TA14 PO; +MEDR150I12
== END ==
LOC: M LABSMTC 11:33
PROVIDERS: ATTEND Anesthesiology
DX: Z01.818 Encounter for other preprocedural examination (principal); Z11.52 Encounter for screening for COVID-19

== ENCOUNTER 2022-05-18 07:53 | Day surgery (SDC) | payer OTHER ==
[~2022-05-18] VITALS: Ht 165.1 cm; Wt 91.6 kg
[~2022-05-18 07:53] MED LIST changes: +LIDOCAINE 2% 100MG/5ML SDV (FOR ANES.) As Ordered ONE; +MIDAZOLAM INJ 2MG/2ML VIAL (J2250 PER 1MG) As Ordered ONE; +ROCURONIUM BROMIDE 50 MG/5 ML VIAL As Ordered ONE; +fentaNYL 250 MCG/5 ML INJECTION As Ordered ONE; +propofoL 200 MG/20 ML VIAL As Ordered ONE
[2022-05-18] MEDS ORDERED: SCOPOLAMINE 1MG TRANSDERMAL PATCH TOP ONE (08:35)
[2022-05-18] MEDS ORDERED: BUPIVACAINE/EPIN 0.5% 30 ML VIAL As Ordered ONE (08:50)
[2022-05-18] MEDS ORDERED: ACETAMINOPHEN 1000MG 100ML IV BTL (OFIRMEV) (J0131 PER 10MG) As Ordered ONE (09:17)
[2022-05-18] MEDS ORDERED: KETOROLAC 60MG 2ML VIAL As Ordered ONE (09:17)
[2022-05-18] MEDS ORDERED: dexameTHASONE 4 MG/ML 1ML VIAL (J1100 PER 1MG) As Ordered ONE (09:17)
[2022-05-18] MEDS ORDERED: ONDANSETRON 4MG 2ML VIAL As Ordered ONE (09:17)
[2022-05-18] MEDS ORDERED: SUGAMMADEX SODIUM 500 MG/5 ML VIAL (BRIDION) As Ordered ONE (09:20)
[2022-05-18] MEDS ORDERED: oxyCODONE 5MG TAB PO PRN (09:40)
[2022-05-18] MEDS ORDERED: LR 1,000 ML IV SCH ×2 (09:40→10:40)
[2022-05-18] MEDS ORDERED: fentaNYL 100 MCG/2 ML INJECTION IV PRN (09:40)
[2022-05-18] MEDS ORDERED: ONDANSETRON 4MG 2ML VIAL IV PRN ×2 (09:40→10:40)
[2022-05-18] MEDS ORDERED: MORPHINE 2 MG/ML 1ML VIAL IV PRN (09:40)
[2022-05-18] MEDS ORDERED: METOCLOPRAMIDE INJ 10MG/2ML VIAL (J2765 PER 1) IV PRN (10:15)
[2022-05-18] MEDS ORDERED: HYDROcodone/APAP LIQUID 7.5-325MG 15ML UDC (LORTAB ELIXIR) PO PRN (10:40)
[2022-05-18 11:49] VITALS: BP 122/75
== END 2022-05-18 11:56 | disposition home or self-care (01) ==
LOC: M SDC 07:53
PROVIDERS: ATTEND Otolaryngology
DX: J35.01 Chronic tonsillitis (principal); F41.9 Anxiety disorder, unspecified; F90.9 Attention-deficit hyperactivity disorder, unspecified type; Z79.899 Other long term (current) drug therapy
CPT/HCPCS: 42826; 81025; 88302; J0131; J1100; J1885; J2250; J2405; J2765; J3010

== ENCOUNTER → 2024-06-17 | Outpatient (REF) | payer OTHER ==
[~2024-06-17] MED LIST changes: -LIDOCAINE 2% 100MG/5ML SDV (FOR ANES.) As Ordered ONE; -MIDAZOLAM INJ 2MG/2ML VIAL (J2250 PER 1MG) As Ordered ONE; -ROCURONIUM BROMIDE 50 MG/5 ML VIAL As Ordered ONE; -fentaNYL 250 MCG/5 ML INJECTION As Ordered ONE; -propofoL 200 MG/20 ML VIAL As Ordered ONE
[2024-06-18 14:35] LABS: APPEARANCE, URINE CLOUDY (CLEAR); COLOR, URINE YELLOW (YELLOW)
[2024-06-18 14:36] LABS: BILIRUBIN, URINE AUTO NEGATIVE (NEGATIVE); GLUCOSE, URINE (UA) AUTO NEGATIVE (NEGATIVE); KETONE, URINE AUTO NEGATIVE (NEGATIVE); NITRITE, URINE AUTO NEGATIVE (NEGATIVE); PROTEIN, URINE AUTO NEGATIVE (NEGATIVE); SPECIFIC GRAVITY URINE AUTO 1.018 (1.002-1.035); UROBILINOGEN, URINE AUTO 0.2 mg/dL (0.0-2.0)
[2024-06-18 14:37] LABS: BLOOD, URINE BLOOD NEGATIVE (NEGATIVE); LEUKOCYTE ESTERASE, URINE AUTO NEGATIVE (NEGATIVE); RBC, URINE AUTO 2 /HPF (0-3); WBC, URINE AUTO 6 /HPF (0-3)
[2024-06-18 14:38] LABS: BACTERIA, URINE AUTO NEGATIVE (NEGATIVE)
[2024-06-18 14:39] LABS: MUCUS, URINE SMALL (NEGATIVE)
== END ==
LOC: M LAB REF 14:21
PROVIDERS: ATTEND Physician Assistant Medical
DX: N39.0 Urinary tract infection, site not specified (principal)

== ENCOUNTER 2024-11-03 10:39 | Emergency (ER) | payer OTHER ==
[~2024-11-03] VITALS: Ht 160 cm; Wt 107.3 kg
[2024-11-03] MEDS: KETOROLAC 30 MG/ML 1ML VIAL IV ONE (12:00)
[2024-11-03 12:29] LABS: BASO # 0.1 10^3/uL (0.0-0.2); BASO % 0.5 % (0.0-1.0); EOS # 0.3 10^3/uL (0.0-0.5); EOS % 2.1 % (0.0-3.0); HEMOGLOBIN 14.3 g/dl (12.0-15.5); LYMPH # 2.5 10^3/uL (1.5-5.0); LYMPH % 19.7 % (24.0-44.0); MEAN CORPUSCULAR HEMOGLOBIN 31.7 pg (27.0-33.0); MEAN CORPUSCULAR VOLUME 93.1 fl (80.0-96.0); MONO # 1.2 10^3/uL (0.0-0.8); MONO % 9.1 % (2.0-8.0); NEUTROPHILS # 8.7 10^3/uL (1.5-8.5); NEUTROPHILS % 67.9 % (36.0-66.0); PLATELET COUNT, AUTOMATED 313 10^3/uL (150-450); RED BLOOD COUNT 4.51 10^6/uL (4.00-5.40); WHITE BLOOD COUNT 12.8 10^3/uL (4.0-10.0)
[2024-11-03 12:31] LABS: KETONE, URINE AUTO RFX TRACE mg/dL (NEGATIVE); LEUKOCYTE ESTERASE UR AUTO RFX NEGATIVE (NEGATIVE); MUCUS, URINE RFX SMALL (NEGATIVE); NITRITE, URINE AUTO RFX NEGATIVE (NEGATIVE); RBC, URINE AUTO RFX TNTC /HPF (0-3); SQUAM EPITHELIAL CELL UR AURFX 13 /HPF (0-6); WBC, URINE AUTO RFX 4 /HPF (0-3)
[2024-11-03] MEDS ORDERED: ISOVUE-370 76% 100ML VIAL As Ordered ONE (12:37)
[2024-11-03 12:48] LABS: HCG, SERUM QUALITATIVE NEGATIVE (NEGATIVE)
[2024-11-03 12:49] LABS: LIPASE 36 U/L (12-53)
[2024-11-03 12:51] LABS: ALBUMIN 3.6 G/DL (3.2-5.2); ALKALINE PHOSPHATASE 76 U/L (35-104); ALT/SGPT 31 U/L (7.0-40); AST/SGOT 24 U/L (<34); BILIRUBIN,DIRECT 0.1 MG/DL (<0.4); BILIRUBIN,TOTAL 0.3 MG/DL (0.3-1.2); TOTAL PROTEIN 6.8 G/DL (5.7-8.2)
[2024-11-03] MEDS: NS (Normal Saline) 0.9% 1,000 ML IV ONE (13:40)
[2024-11-03] MEDS: TAMSULOSIN 0.4 MG CAP PO ONE (13:40)
[2024-11-03] MEDS: MORPHINE 4 MG/ML 1ML VIAL IV ONE (14:00)
[2024-11-03] MEDS: ONDANSETRON 4MG 2ML VIAL IV ONE (14:00)
[2024-11-03] MEDS ORDERED: FLOM0.4C39 PO (15:30)
[2024-11-03 15:46] VITALS: BP 136/74; TEMP 97.3; O2SAT 100
== END 2024-11-03 15:58 | disposition home or self-care (01) ==
LOC: M ED 10:39
DX: N13.2 Hydronephrosis with renal and ureteral calculous obstruction (principal); K57.30 Diverticulosis of large intestine without perforation or abscess without bleeding; K76.0 Fatty (change of) liver, not elsewhere classified; R16.1 Splenomegaly, not elsewhere classified; K21.9 Gastro-esophageal reflux disease without esophagitis; E11.9 Type 2 diabetes mellitus without complications; Z79.2 Long term (current) use of antibiotics
CPT/HCPCS: 74177; 80047; 80076; 81001; 83605; 83690; 84703; 85025; 96374; 96375; 99284; J1885; J2405; Q9967